=== PATIENT | female | born 1935 | race Caucasian/White ===

== ENCOUNTER 2022-01-16 08:37 | Emergency (ER) | payer MEDICARE ==
[2022-01-16] MEDS ORDERED: HYDROmorphone 1 MG/ML 1 ML SYRINGE IVP STA (08:55)
--- NOTE | 2022-01-16 09:07 | ED ---
Fall HPI - General Stated Complaint: L hip fracture Time Seen by Provider: 01/16/22 08:40 - History of Present Illness Initial Comments: 86-year-old female with past medical history of high blood pressure, diabetes, hypothyroid presents to the emergency department after she sustained a fall. She awoke to use the restroom at 12:30 last night. States that she was lightheaded however this is not uncommon for her. She attempted to get her bearings before she started to ambulate. Patient fell into the wall and landed on her left hip. Denies any head injury or loss of consciousness. No neck or back pain. No headaches or visual changes. Denies any chest pain or shortness of breath. Reports to left hip pain. She was taken into [facility] and found to have a left intertrochanteric fracture of the proximal left femur. No dislocation. Laboratory studies were obtained and were within normal limits. Patient transferred for hospital for surgical evaluation. Has seen a orthopedic surgeon however this was in the remote past and he was out of [place]. Last oral food intake was at 6 PM last night. 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 Denies history of coronary disease or heart failure. No other alleviating, precipitating or modifying factors - Related Data Home Medications Medication Instructions Recorded Confirmed Acetaminophen [Tylenol Extra 500 mg PO Q6H PRN 01/16/22 01/16/22 Strength] Aspirin EC [Ecotrin Low Dose] 81 mg PO DAILY 01/16/22 01/16/22 Atorvastatin [Lipitor] 20 mg PO DAILY 01/16/22 01/16/22 Cholecalciferol [Vitamin D3 (25 25 mcg PO DAILY 01/16/22 01/16/22 Mcg = 1000 Iu)] Levothyroxine Sodium [Synthroid] 50 mcg PO DAILY 01/16/22 01/16/22 Losartan/Hydrochlorothiazide 1 tab PO DAILY 01/16/22 01/16/22 [Losartan-Hctz 100-25 mg Tab] Multivitamins, Thera [Multivitamin 1 tab PO DAILY 01/16/22 01/16/22 (formulary)] Omeprazole [PriLOSEC] 20 mg PO DAILY PRN 01/16/22 01/16/22 allopurinoL [Zyloprim] 100 mg PO DAILY 01/16/22 01/16/22 amLODIPine [Norvasc] 5 mg PO DAILY 01/16/22 01/16/22 Allergies Allergy/AdvReac Type Severity Reaction Status Date / Time cephalexin [From Keflex] Allergy Rash/Hives Verified 01/16/22 10:36 ciprofloxacin [From Cipro] Allergy Nausea & Verified 01/16/22 10:36 Vomiting & Diarrhea clonidine Allergy Confusion Verified 01/16/22 10:36 clopidogrel [From Plavix] Allergy Unknown Verified 01/16/22 10:36 cyclobenzaprine Allergy Unknown Verified 01/16/22 10:36 sulfamethoxazole Allergy Nausea Verified 01/16/22 10:36 [From Bactrim] trimethoprim [From Bactrim] Allergy Nausea Verified 01/16/22 10:36 acetaminophen [From Vicodin] AdvReac Nausea Verified 01/16/22 10:36 aloe vera [From Flexall] AdvReac Unknown Verified 01/16/22 10:36 codeine AdvReac Nausea & Verified 01/16/22 10:36 Vomiting epinephrine AdvReac Rapid Verified 01/16/22 10:36 Heart Rate hydrocodone [From Vicodin] AdvReac Nausea Verified 01/16/22 10:36 menthol [From Flexall] AdvReac Unknown Verified 01/16/22 10:36 vitamin E (d-alpha AdvReac Unknown Verified 01/16/22 10:36 tocopherol) [From Flexall] Review of Systems ROS Statement: Those systems with pertinent positive or pertinent negative responses have been documented in the HPI. ROS Other: All systems not noted in ROS Statement are negative. General Exam General appearance: alert, in no apparent distress Head exam: Present: atraumatic, normocephalic, normal inspection Eye exam: Present: normal appearance, PERRL, EOMI. Absent: scleral icterus, conjunctival injection, periorbital swelling ENT exam: Present: normal exam, mucous membranes moist Neck exam: Present: normal inspection. Absent: tenderness, meningismus, lymphadenopathy Respiratory exam: Present: normal lung sounds bilaterally. Absent: respiratory distress, wheezes, rales, rhonchi, stridor Cardiovascular Exam: Present: normal rhythm, tachycardia, normal heart sounds. Absent: systolic murmur, diastolic murmur, rubs, gallop, clicks GI/Abdominal exam: Present: soft, normal bowel sounds. Absent: distended, tenderness, guarding, rebound, rigid Extremities exam: Present: tenderness (left hip), normal capillary refill, other (left leg shortened and rotated. 2+ DP and PT pulses. Compartments are soft. Normal cap refill). Absent: pedal edema, joint swelling, calf tenderness Back exam: Present: normal inspection Neurological exam: Present: alert, oriented X3, CN II-XII intact Psychiatric exam: Present: normal affect, normal mood Skin exam: Present: warm, dry, intact, normal color. Absent: rash Course Vital Signs 01/16/22 09:04 Temperature 97.2 F L Pulse Rate 109 H Respiratory 18 Rate Blood Pressure 124/78 O2 Sat by Pulse 98 Oximetry - Reevaluation(s) Reevaluation #1: Ang Tony in ER to assess patient - would like new films. Films from [place] do not have any images 01/16/22 9:30 Reevaluation #2: Ang Tony has spoken to his attending and states that I must transfer the patient as their recommendations are for transfer for ortho trauma 01/16/22 10:58 Reevaluation #3: Dr. Tai accepts patient - will go to ER 01/16/22 11:32 Medical Decision Making - Medical Decision Making Upon arrival patient is placed in room 11. I did review her transfer packet. I called and spoke with Ang Tony. We attempted to look at the images sent from [place] however images are not visible from the CD. We repeated our own imaging and they are evaluated by the orthopedic team. Patient has a sub- trochanteric fracture. Orthopedic team does not feel comfortable managing this fracture in recommends transfer to [facility] to the family. Because of this I also spoke to family. They were agreeable to transfer again. I spoke with Dr. Tai who accepts the transfer. Patient will be taken to the ED. COBRA forms signed, patient transferred in stable condition. - Lab Data Result diagrams: 01/16/22 09:44 01/16/22 09:44 Lab Results 01/16/22 01/16/22 01/16/22 Range/Units 09:42 09:44 09:44 WBC 20.0 H (3.8-10.6) k/uL RBC 3.81 (3.80-5.40) m/uL Hgb 12.6 (11.4-16.0) gm/dL Hct 36.2 (34.0-46.0) % MCV 95.2 (80.0-100.0) fL MCH 33.0 (25.0-35.0) pg MCHC 34.7 (31.0-37.0) g/dL RDW 12.6 (11.5-15.5) % Plt Count 274 (150-450) k/uL MPV 8.9 Neutrophils % 80 % Lymphocytes % 16 % Monocytes % 3 % Eosinophils % 0 % Basophils % 0 % Neutrophils # 16.0 H (1.3-7.7) k/uL Lymphocytes # 3.1 (1.0-4.8) k/uL Monocytes # 0.7 (0-1.0) k/uL Eosinophils # 0.0 (0-0.7) k/uL Basophils # 0.0 (0-0.2) k/uL Sodium 140 (137-145) mmol/L Potassium 4.3 (3.5-5.1) mmol/L Chloride 104 (98-107) mmol/L Carbon Dioxide 24 (22-30) mmol/L Anion Gap 12 mmol/L BUN 38 H (7-17) mg/dL Creatinine 1.28 H (0.52-1.04) mg/dL Est GFR (CKD-EPI)AfAm 43 (>60 ml/min/1.73 sqM) Est GFR (CKD-EPI)NonAf 38 (>60 ml/min/1.73 sqM) Glucose 167 H (74-99) mg/dL Calcium 9.6 (8.4-10.2) mg/dL Total Bilirubin 0.5 (0.2-1.3) mg/dL AST 32 (14-36) U/L ALT 23 (4-34) U/L Alkaline Phosphatase 124 (38-126) U/L Troponin I (0.000-0.034) ng/mL Total Protein 6.4 (6.3-8.2) g/dL Albumin 4.3 (3.5-5.0) g/dL Blood Type Blood Type Confirm O Negative Blood Type Recheck Bld Type Recheck Status Antibody Screen Spec Expiration Date 01/16/22 01/16/22 Range/Units 09:44 09:44 WBC (3.8-10.6) k/uL RBC (3.80-5.40) m/uL Hgb (11.4-16.0) gm/dL Hct (34.0-46.0) % MCV (80.0-100.0) fL MCH (25.0-35.0) pg MCHC (31.0-37.0) g/dL RDW (11.5-15.5) % Plt Count (150-450) k/uL MPV Neutrophils % % Lymphocytes % % Monocytes % % Eosinophils % % Basophils % % Neutrophils # (1.3-7.7) k/uL Lymphocytes # (1.0-4.8) k/uL Monocytes # (0-1.0) k/uL Eosinophils # (0-0.7) k/uL Basophils # (0-0.2) k/uL Sodium (137-145) mmol/L Potassium (3.5-5.1) mmol/L Chloride (98-107) mmol/L Carbon Dioxide (22-30) mmol/L Anion Gap mmol/L BUN (7-17) mg/dL Creatinine (0.52-1.04) mg/dL Est GFR (CKD-EPI)AfAm (>60 ml/min/1.73 sqM) Est GFR (CKD-EPI)NonAf (>60 ml/min/1.73 sqM) Glucose (74-99) mg/dL Calcium (8.4-10.2) mg/dL Total Bilirubin (0.2-1.3) mg/dL AST (14-36) U/L ALT (4-34) U/L Alkaline Phosphatase (38-126) U/L Troponin I 0.012 (0.000-0.034) ng/mL Total Protein (6.3-8.2) g/dL Albumin (3.5-5.0) g/dL Blood Type O Negative Blood Type Confirm Blood Type Recheck No Previous Record Bld Type Recheck Status CABO Indicated Antibody Screen NEGATIVE Spec Expiration Date 01/19/20222343 - EKG Data EKG Comments: I interpreted the EKG myself. Demonstrates a sinus tachycardia with a rate of 103. ID interval 156. QRS 89. QTC of 383. Q wave inverted T-wave in lead 3. No acute ST segment elevations Disposition Clinical Impression: Fracture of hip, Fall Disposition: OTHER INSTITUTION NOT DEFINED Condition: Stable Is patient prescribed a controlled substance at d/c from ED?: No Referrals: Nonstaff,Physician [REFERRING] - 1-2 days Time of Disposition: 11:43 - Out of Hospital Transfer - Req. Specs Out of Hospital Transfer - Requested Specifics: Other Emergency Center ([facility])
[2022-01-16 09:56] LABS: Basophils % (A) 0 %; Eosinophils % (A) 0 %; HCT 36.2 % (34.0-46.0); HGB 12.6 gm/dL (11.4-16.0); Lymphocytes # (A) 3.1 k/uL (1.0-4.8); Lymphocytes % (A) 16 %; MCHC 34.7 g/dL (31.0-37.0); MCV 95.2 fL (80.0-100.0); Mean Platelet Volume 8.9; Monocytes # (A) 0.7 k/uL (0-1.0); Monocytes % (A) 3 %; Neutrophils % (A) 80 %; Platelet Count 274 k/uL (150-450); RBC 3.81 m/uL (3.80-5.40); RDW 12.6 % (11.5-15.5)
[2022-01-16] MEDS ORDERED: ONDANSETRON 4 MG/2 ML VIAL IVP STA (10:15)
[2022-01-16 10:24] LABS: Albumin 4.3 g/dL (3.5-5.0); Calcium 9.6 mg/dL (8.4-10.2); Potassium 4.3 mmol/L (3.5-5.1); Total Bilirubin 0.5 mg/dL (0.2-1.3); Total Protein 6.4 g/dL (6.3-8.2)
--- NOTE | 2022-01-16 10:54 | XR ---
EXAMINATION TYPE: XR chest 1V DATE OF EXAM: 01/16/2022 COMPARISON: NONE HISTORY: Preop TECHNIQUE: Single frontal view of the chest is obtained. FINDINGS: There is limited inspiration. Atherosclerotic change aorta. Subsegmental changes lung base s with no pneumothorax or pleural effusion. Osseous structures appear grossly intact IMPRESSION: Limited inspiration with basilar atelectasis or early infiltrate. Favor atelectasis from reduced inspiration correlate clinically.
--- NOTE | 2022-01-16 10:55 | XR ---
EXAMINATION TYPE: XR femur LT DATE OF EXAM: 01/16/2022 COMPARISON: NONE HISTORY: Pain TECHNIQUE: 4 views submitted FINDINGS: There is a displaced comminuted fracture of the left femoral neck. Arthropathy in the joint and knee joint noted. Vascular calcifications seen. IMPRESSION: 1. Displaced comminuted fracture left femoral neck
--- NOTE | 2022-01-16 10:56 | XR ---
EXAMINATION TYPE: XR Hip LT and AP Pelvis DATE OF EXAM: 01/16/2022 COMPARISON: NONE HISTORY: Pain TECHNIQUE: A single AP view of the pelvis is obtained. Two views of the left hip are obtained. FINDINGS: There is displaced comminuted fracture left femoral neck. Calcifications in the pelvis are nonspecific. Arthropathy bilaterally. Degenerative change lower lumbar spine. SI joints symmetric. R emaining osseous structures intact. IMPRESSION: 1. Displaced comminuted fracture left femoral neck.
[2022-01-16 19:13] VITALS: BP 117/61; PULSE 108; RESP 14; TEMP 98
== END 2022-01-16 13:00 | disposition other institution (70) ==
LOC: EC 08:37
DX: S72.92XA Unspecified fracture of left femur, initial encounter for closed fracture (principal); E11.9 Type 2 diabetes mellitus without complications; E03.9 Hypothyroidism, unspecified; I10 Essential (primary) hypertension; Z88.2 Allergy status to sulfonamides; Z88.8 Allergy status to other drugs, medicaments and biological substances; Z91.048 Other nonmedicinal substance allergy status; Z79.82 Long term (current) use of aspirin; Z79.899 Other long term (current) drug therapy; Z79.890 Hormone replacement therapy; W18.30XA Fall on same level, unspecified, initial encounter
CPT/HCPCS: 36415; 93005; 86900; 86901; 80053; 84484; 85025; 86850; 73502; 73552; 71045; 99285; 96374; 96375; J2405; J1170